=== PATIENT | male | born 1965 | race Caucasian/White ===

== ENCOUNTER 2016-06-19 11:18 | Emergency (ER) | payer OTHER ==
[2016-06-19 11:22] VITALS: BMI 28.4
[2016-06-19] MEDS ORDERED: Sodium Chloride 0.9% 1,000 ML IV ONE (11:52)
[2016-06-19] MEDS ORDERED: Piperacillin/Tazobact 3.375 gm 100 ML IV STA (11:56)
[2016-06-19 12:23] LABS: BASO # 0.1 K/uL (0.0-0.2); BASO % 0.5 % (0.0-2.0); EOS # 0.3 K/uL (0.0-0.7); EOS % 2.6 % (0.0-4.0); HEMATOCRIT 44.7 % (35.0-51.0); LYMPH # 1.8 K/uL (1.0-4.3); LYMPH % 15.5 % (20.0-40.0); MEAN CELL VOLUME 89.1 fL (80.0-94.0); MEAN CORPUSCULAR HEMOGLOBIN 30.2 pg (27.0-31.0); MEAN CORPUSCULAR HGB CONC 33.9 g/dL (33.0-37.0); MEAN PLATELET VOLUME 8.7 fL (7.2-11.7); MONO # 1.1 K/uL (0.0-0.8); MONO % 9.6 % (0.0-10.0); RED CELL DISTRIBUTION WIDTH 13.4 % (11.5-14.5); WHITE BLOOD COUNT 11.7 K/uL (4.8-10.8)
[2016-06-19 12:30] LABS: CHLORIDE 103 mmol/L (98-107)
[2016-06-19 12:31] LABS: POTASSIUM 4.3 mmol/L (3.6-5.2); SODIUM 140 mmol/L (132-148)
[2016-06-19 12:33] LABS: ALB/GLOB RATIO 1.1 (1.0-2.1); ALKALINE PHOSPHATASE 62 U/L (38-126); ALT/SGPT 45 U/L (21-72); AST/SGOT 22 U/L (17-59); BILIRUBIN,TOTAL 0.5 mg/dL (0.2-1.3); BLOOD UREA NITROGEN 12 mg/dL (9-20); CARBON DIOXIDE 26 mmol/L (22-30); GFR AFRICAN-AMERICAN > 60; GLUCOSE,RANDOM 101 mg/dL (75-110)
[2016-06-19 12:34] LABS: CALCIUM 8.8 mg/dl (8.6-10.4)
[2016-06-19] MEDS ORDERED: Piperacillin/Tazobact 3.375 gm 100 ML IVPB ONE (12:46)
[2016-06-19] MEDS ORDERED: Iohexol 300 100 ML IJ ONE (13:23)
--- NOTE | 2016-06-19 16:17 | C.PDOC ---
History Of Present Illness 51 year old patient presents to the emergency department complaining of perirectal pain for the past week. Patient states there is increased swelling. Patient has a history of perirectal abscess with draining. Patient notes he had a fever yesterday, but not today. No pain medications were taken. Patient denies abdominal pain, nausea, vomiting, blood in stool, back pain, or urinary symptoms. Time Seen by Provider: 06/19/16 11:41 Chief Complaint (Nursing): Back Pain History Per: Patient History/Exam Limitations: no limitations Onset/Duration Of Symptoms: Other (1 week) Current Symptoms Are (Timing): Still Present Quality Of Discomfort: "Pain" Severity: Moderate Pain Scale Rating Of: 4 Associated Symptoms: None Exacerbating Factor(s): Nothing Recent travel outside of the [place]: No Past Medical History Reviewed: Historical Data, Nursing Documentation, Vital Signs Vital Signs: Last Vital Signs Temp 98.2 F 06/19/16 19:05 Pulse 72 06/19/16 19:05 Resp 18 06/19/16 19:05 BP 132/72 06/19/16 19:05 Pulse Ox 100 06/19/16 21:11 Family History: States: Unknown Family Hx - Social History Hx Tobacco Use: No Hx Alcohol Use: No Hx Substance Use: No - Immunization History Hx Tetanus Toxoid Vaccination: No Hx Influenza Vaccination: Yes Hx Pneumococcal Vaccination: No Review Of Systems Except As Marked, All Systems Reviewed And Found Negative. Constitutional: Negative for: Fever Gastrointestinal: Positive for: Rectal Pain. Negative for: Nausea, Vomiting, Abdominal Pain Genitourinary: Negative for: Dysuria, Frequency, Incontinence, Hematuria Musculoskeletal: Negative for: Back Pain Physical Exam - Physical Exam Appears: Non-toxic, No Acute Distress Skin: Warm, Dry Head: Atraumatic, Normacephalic Eye(s): bilateral: Normal Inspection, EOMI Nose: Normal Oral Mucosa: Moist Neck: Normal ROM, Supple Chest: Symmetrical Cardiovascular: Rhythm Regular Respiratory: Normal Breath Sounds, No Accessory Muscle Use Gastrointestinal/Abdominal: Soft, No Tenderness Rectal: No Blood Streaked Stool, No Mass, Other (right perirectal area: tenderness, swelling and erythema) Back: Normal Inspection, No CVA Tenderness Extremity: Normal ROM Neurological/Psych: Oriented x3, Normal Speech, Normal Cognition Gait: Steady ED Course And Treatment - Laboratory Results Result Diagrams: 06/19/16 12:19 06/19/16 12:19 O2 Sat by Pulse Oximetry: 100 (RA) Pulse Ox Interpretation: Normal - CT Scan/US CT - Abd & Pelvis Other Rad Studies (CT/US): Read By Radiologist, Radiology Report Reviewed CT/US Interpretation: PROCEDURE: CT Abdomen and Pelvis dated 06/19/2016. . HISTORY: perirectal pain, r/o abscess. COMPARISON: None. TECHNIQUE: Contiguous axial images of the abdomen and pelvis performed in standard fashion following intravenous injection of approximately 100 cc of Omnipaque 300 contrast material. Coronal and Sagittal reformats generated. Radiation dose: Total exam DLP = 409.61 mGy-cm. FINDINGS: LOWER THORAX: Mild passive atelectasis both posterior lower lung marie. No effusion or basilar pneumothorax. Heart size is upper limits of normal/borderline enlarged. No pericardial effusion. Tiny hiatal hernia. LIVER: The liver is enlarged measuring approximately 21.5 cm in CC dimension. Mild diffuse fatty hepatic infiltration. No obvious hepatic mass collection or calcification. Portal and splenic veins are opacified. GALLBLADDER AND BILE DUCTS: Gallbladder is appears incompletely distended which may account for slightly prominent gallbladder wall. . No evidence of intraluminal gallbladder calculi. PANCREAS : Visualized portions of the pancreas unremarkable without mass, collection or calcification. No significant pancreatic ductal dilatation. SPLEEN: Spleen exhibits normal size and attenuation pattern without mass collection or calcification. ADRENALS: There are no adrenal lesions. KIDNEYS AND URETERS: Kidneys exhibit symmetric nephrograms. No evidence of nephrolithiasis or hydronephrosis. BLADDER: Urinary bladder is physiologically distended. No evidence of intraluminal urinary bladder calculi. REPRODUCTIVE: Prostate gland measures approximately 4.5 cm in transverse dimension. Prostatic calcifications are present. APPENDIX: Appendix is normal mild fatty hepatic. BOWEL: Evaluation of the bowel slightly limited due to incomplete opacification. . The stomach contains food debris liquid and air. Visualized loops of small bowel exhibit normal contour and caliber. No evidence of acute mechanical small bowel obstruction. Stool and air seen throughout the colon. There is a small approximately 2.9cm ap x 1.5cm t x 2.8cm cc elliptical shaped low-attenuation focus in the right parasagittal perianal region that is most consistent with a small perianal abscess. PERITONEUM: Unremarkable. No fluid collection. No free air. LYMPH NODES: Unremarkable. No enlarged lymph nodes. VASCULATURE: Unremarkable. No aortic aneurysm. BONES: No fracture or destructive lesion. OTHER FINDINGS: None. IMPRESSION: Impression: There is a small perianal abscess as above. Hepatomegaly. Mild fatty hepatic infiltration. Progress Note: Plan: -Abdomen/Pelvis CT. -Labs. -IV fluids, Toradol, Zosyn. -Labs. Case discussed with Carlos Carter who saw the patient and evaluated at bedside. Dr Velez discsused case with Dr. Cornejo, agreed upon plan and discharge. I & D performed in the emergency department by Dr Velez. Patient was instructed to do a wound check and change packing in 2 days. Disposition - Disposition Referrals: Kentrell Cornejo MD [Staff Provider] - Disposition: HOME/ ROUTINE Disposition Time: 16:54 Condition: STABLE Additional Instructions: Wound check in [address] Cornejo or ER. Return to ER if symptoms persist or worsen. Prescriptions: Ciprofloxacin HCl [Cipro] 500 mg PO BID #14 tab Metronidazole [Flagyl] 500 mg PO BID #14 tab Naproxen [Naprosyn] 1 tab PO BID PRN #20 tab PRN Reason: Pain Instructions: Rectal Abscess (ED) - Clinical Impression Clinical Impression: Perirectal abscess - PA / SALES VENDOR / Resident Statement MD/DO has reviewed & agrees with the documentation as recorded. - Scribe Statement The provider has reviewed the documentation as recorded by the Scribe Liz Pratt All medical record entries made by the Scribe were at my direction and personally dictated by me. I have reviewed the chart and agree that the record accurately reflects my personal performance of the history, physical exam, medical decision making, and the department course for this patient. I have also personally directed, reviewed, and agree with the discharge instructions and disposition.
[2016-06-19] MEDS ORDERED: Lidocaine 2% w Epi 1:100,000 Inj IJ ONE (16:53)
--- NOTE | 2016-06-19 16:58 | CP.PCM.CON ---
<Robin Velez - Last Filed: 06/19/16 18:00> History of Present Illness - History of Present Illness History of Present Illness: General Surgery Consult Re: perirectal abscess HPI: 51M presented with 1 week of increasing perirectal pain. Ibuprofen did not help pain anymore so he came to ED. He had this before 7 years ago and had it drained. No F/C, N/V/D, dysuria, discharge, tenesmus, abdominal pain, SOB, chest pain or dizziness. PMH: Denies PSH: L knee replacement SH: Quit smoking 3 years ago, no EtOH, no drug use. All: NKDA Meds: Denies Review of Systems - Review of Systems All systems: reviewed and no additional remarkable complaints except (as per hpi ) Past Patient History - Past Social History Smoking Status: Former Smoker - CARDIAC Hx Cardiac Disorders: No - PULMONARY Hx Respiratory Disorders: No - NEUROLOGICAL Hx Neurological Disorder: No - HEENT Hx HEENT Problems: No - RENAL Hx Chronic Kidney Disease: No - ENDOCRINE/METABOLIC Hx Endocrine Disorders: No - HEMATOLOGICAL/ONCOLOGICAL Hx Blood Disorders: No - INTEGUMENTARY Hx Dermatological Problems: No - MUSCULOSKELETAL/RHEUMATOLOGICAL Hx Musculoskeletal Disorders: No - GASTROINTESTINAL Hx Gastrointestinal Disorders: No - GENITOURINARY/GYNECOLOGICAL Hx Genitourinary Disorders: No - PSYCHIATRIC Hx Substance Use: No - SURGICAL HISTORY Hx Surgeries: Yes Other/Comment: L knee replacement - ANESTHESIA Hx Anesthesia: Yes Hx Anesthesia Reactions: No Meds Home Medications: Home Medication List Medication Instructions Recorded Confirmed Type Ciprofloxacin HCl [Cipro] 500 mg PO BID #14 tab 06/19/16 Rx Metronidazole [Flagyl] 500 mg PO BID #14 tab 06/19/16 Rx Naproxen [Naprosyn] 1 tab PO BID PRN #20 tab 06/19/16 Rx Allergies/Adverse Reactions: Allergies Allergy/AdvReac Type Severity Reaction Status Date / Time No Known Allergies Allergy Verified 06/19/16 11:21 Physical Exam - Constitutional Appears: Non-toxic, No Acute Distress - Head Exam Head Exam: ATRAUMATIC, NORMOCEPHALIC - Eye Exam Eye Exam: EOMI. absent: Scleral icterus - ENT Exam ENT Exam: Mucous Membranes Moist Additional comments: trachea midline - Respiratory Exam Respiratory Exam: NORMAL BREATHING PATTERN. absent: Respiratory Distress - GI/Abdominal Exam GI & Abdominal Exam: Soft. absent: Distended, Tenderness - Rectal Exam Rectal Exam: absent: Black Stool, Bloody Stool, Fecal Impaction Additional comments: TTP on R side with swelling and erythema over R perineal area and TTP of R side of rectum - Extremities Exam Extremities exam: Positive for: normal capillary refill. Negative for: pedal edema - Back Exam Back exam: absent: CVA tenderness (L), CVA tenderness (R) - Neurological Exam Neurological exam: Alert, Oriented x3 - Psychiatric Exam Psychiatric exam: Normal Affect, Normal Mood - Skin Skin Exam: Dry, Warm Results - Vital Signs Recent Vital Signs: Last Vital Signs Temp 97.1 F L 06/19/16 15:00 Pulse 56 L 06/19/16 15:00 Resp 20 06/19/16 15:00 BP 100/63 06/19/16 15:00 Pulse Ox 100 06/19/16 16:17 - Labs Result Diagrams: 06/19/16 12:19 06/19/16 12:19 Labs: Laboratory Results - last 24 hr 06/19/16 12:19 WBC 11.7 H RBC 5.02 Hgb 15.1 Hct 44.7 MCV 89.1 MCH 30.2 MCHC 33.9 RDW 13.4 Plt Count 222 MPV 8.7 Neut % (Auto) 71.8 Lymph % (Auto) 15.5 L [place] % (Auto) 9.6 Eos % (Auto) 2.6 Baso % (Auto) 0.5 Neut # 8.4 H Lymph # 1.8 [place] # 1.1 H Eos # 0.3 Baso # 0.1 Sodium 140 Potassium 4.3 Chloride 103 Carbon Dioxide 26 Anion Gap 15 BUN 12 Creatinine 0.8 Est GFR ( Amer) > 60 Est GFR (Non-Af Amer) > 60 Random Glucose 101 Calcium 8.8 Total Bilirubin 0.5 AST 22 ALT 45 Alkaline Phosphatase 62 Total Protein 7.0 Albumin 3.7 Globulin 3.3 Albumin/Globulin Ratio 1.1 - Imaging and Cardiology CT scan - pelvis Status: Image reviewed by me, Report reviewed by me Assessment & Plan - Assessment and Plan (Free Text) Assessment: 51M with perirectal abscess Plan: Bedside I&D, written consent obtained. Packing change in 2 days Follow up in Dr. Sweeney office. Call for Fever more than 101 and increasing pain despite medications. Cipro and flagyl for 7 days D/W Dr. Clemente Velez PGY3 - Incision & Drainage Of Abscess Anesthesia: Lidocaine 2%, With Epi Prep Used: Betadine Procedure: Incised W/Scalpel Blade#: (11), Drained Pus (5.5cc via syringe), Irrigated Cavity W/Saline (50cc), Probed To Break Up Loculations, Packed W/ Gauze (and dressing placed), Cultures Obtained And Sent To Lab <Kentrell Cornejo - Last Filed: 06/22/16 18:16> Results - Vital Signs Recent Vital Signs: Last Vital Signs Temp 98.2 F 06/19/16 19:05 Pulse 72 06/19/16 19:05 Resp 18 06/19/16 19:05 BP 132/72 06/19/16 19:05 Pulse Ox 100 06/19/16 22:25 - Labs Result Diagrams: 06/19/16 12:19 06/19/16 12:19 Attending/Attestation - Attestation I have fully participated in the care of the patient.: Yes I have reviewed all pertinent clinical information: Yes Notes (Text): 06/22/16 18:15 Pt was seen and examined at bedside on 06/19/16 Agree with above note and assessment. Pt would need I & D at bedside Consent Plan d.w pt in detail Risk and benefit explained in detail.
[2016-06-19 18:00] VITALS: RESP 18
[2016-06-19 19:05] VITALS: BP 132/72; PULSE 72; TEMP 98.2
[2016-06-19 21:04] VITALS: O2SAT 100
--- NOTE | 2016-06-23 04:26 | OP ---
PROCEDURE DATE: 06/19/2016 PREOPERATIVE DIAGNOSIS: Perirectal abscess. POSTOPERATIVE DIAGNOSIS: Perirectal abscess. PROCEDURE DONE: 1. Incision and drainage of perirectal abscess on the right side. 2. Debridement of the wound. SURGEON: Kentrell Cornejo MD ONCOLOGY NURSE: Robin Velez, PGY3 resident. ANESTHESIA: Local anesthesia. ESTIMATED BLOOD LOSS: Around 10 mL. DRAINS: None. PATHOLOGY: Pus was sent for culture and sensitivity. COMPLICATIONS: None. INTRAOPERATIVE FINDINGS: The patient had right-sided perirectal abscess with cellulitis. INTRAOPERATIVE STEPS: This 51-year-old male who was diagnosed with right-sided perirectal abscess an d the patient was consented for the procedure. Placed in the left lateral position and the perineal area was prepped and draped and local anesthesia was injected and perirectal abscess was identified a nd incision was made. Abscess was drained and wound was debrided and the wound was packed with iodof orm packing and dry sterile dressing was applied. The patient tolerated the procedure well. Count o f instruments and gauze was correct. There was no apparent complication. Kentrell Cornejo MD cc: [id number] TT: 06/23/2016 04:26:26 kn
== END 2016-06-19 19:05 | disposition home or self-care (01) ==
LOC: C.ER 11:18 → SUPCPDRO 11:18 → C.ER 19:05
DX: K61.1 Rectal abscess (principal); B96.20 Unspecified Escherichia coli [E. coli] as the cause of diseases classified elsewhere; B95.7 Other staphylococcus as the cause of diseases classified elsewhere
CPT/HCPCS: 10060; 74177; 80053; 85025; 87040; 87070; 87181; 87206; 96361; 96365; 96375; 99285; J1885; J2543; J7040; Q9967

== ENCOUNTER 2016-06-21 08:06 | Emergency (ER) | payer OTHER ==
[2016-06-21 08:06] VITALS: BMI 28.4
[2016-06-21 08:17] VITALS: BP 117/72; PULSE 92; RESP 18; TEMP 97.9; O2SAT 97
--- NOTE | 2016-06-21 09:15 | C.PDOC ---
History Of Present Illness 51 y/o male presents to the ED for wound check. He reports that he was evaluated in the ED 2 days prior for perirectal abscess. At that time the patient was evaluated by Dr. Velez who performed I&D in the emergency department. Patient was referred to Dr. Cornejo for follow up and states he has an appointment scheduled next week. Patient denies fevers or any complaints at this time. States he was advised to return to the ED for wound check and repacking today. Chief Complaint (Nursing): Abnormal Skin Integrity History Per: Patient History/Exam Limitations: no limitations Onset/Duration Of Symptoms: Days, Gradual, Persistent Current Symptoms Are (Timing): Still Present Pain Scale Rating Of: 0 Recent travel outside of the [place]: No Past Medical History Reviewed: Historical Data, Nursing Documentation, Vital Signs Vital Signs: Last Vital Signs Temp 97.9 F 06/21/16 08:17 Pulse 92 H 06/21/16 08:17 Resp 18 06/21/16 08:17 BP 117/72 06/21/16 08:17 Pulse Ox 97 06/21/16 11:14 - Medical History PMH: No Chronic Diseases Surgical History: No Surg Hx Family History: States: Unknown Family Hx - Social History Hx Tobacco Use: No Hx Alcohol Use: No Hx Substance Use: No - Immunization History Hx Tetanus Toxoid Vaccination: No Hx Influenza Vaccination: Yes Hx Pneumococcal Vaccination: No Review Of Systems Except As Marked, All Systems Reviewed And Found Negative. Constitutional: Negative for: Fever Musculoskeletal: Negative for: Other (pain) Skin: Positive for: Other (wound check) Physical Exam - Physical Exam Appears: Non-toxic, No Acute Distress Skin: Normal Color, Warm, Dry Head: Atraumatic, Normacephalic Chest: Symmetrical Cardiovascular: Rhythm Regular Respiratory: Normal Breath Sounds, No Rales, No Rhonchi, No Wheezing Rectal: Other (gauze packing and dressing intact) Extremity: Normal ROM Neurological/Psych: Oriented x3, Normal Speech, Normal Cognition ED Course And Treatment O2 Sat by Pulse Oximetry: 97 (ra) Pulse Ox Interpretation: Normal Progress Note: Wound examined by a rn surgical pcu, repacked with gauze and clean dressing applied. Patient on Cipro and Flagyl s/p I&D of perirectal abscess. Wound culture checked - sensitive to patient's prescribed medication. Patient continues to deny any pain or other complaints. Advised to continue medications and follow up with Dr. Cornejo as previously instructed. Disposition - Disposition Referrals: Kentrell Cornejo MD [Staff Provider] - Disposition: HOME/ ROUTINE Disposition Time: 09:12 Condition: STABLE Additional Instructions: Follow up with Surgeon as previously instructed. Return to ED if feel worse. Continue medications as instructed. Instructions: Rectal Abscess (ED) - Clinical Impression Clinical Impression: S/P enrico-rectal abscess repair, follow-up exam - PA / PRINCIPLE INDUSTRIAL HYGIENIST / Resident Statement MD/DO has reviewed & agrees with the documentation as recorded. - Scribe Statement The provider has reviewed the documentation as recorded by the Scribe (Diana Oakes) All medical record entries made by the Scribe were at my direction and personally dictated by me. I have reviewed the chart and agree that the record accurately reflects my personal performance of the history, physical exam, medical decision making, and the department course for this patient. I have also personally directed, reviewed, and agree with the discharge instructions and disposition.
== END 2016-06-21 09:20 | disposition home or self-care (01) ==
LOC: C.ER 08:06
DX: Z48.00 Encounter for change or removal of nonsurgical wound dressing (principal)

== ENCOUNTER 2016-06-29 08:13 | Emergency (ER) | payer OTHER ==
[2016-06-29 08:17] VITALS: BMI 27.4
[2016-06-29] MEDS ORDERED: Sodium Chloride 0.9% 1,000 ML IV ONE (08:39)
--- NOTE | 2016-06-29 08:41 | C.PDOC ---
Time Seen by Provider: 06/29/16 08:14 Chief Complaint (Nursing): Abdominal Pain Past Medical History Vital Signs: Last Vital Signs Temp 98.7 F 06/29/16 08:17 Pulse 95 H 06/29/16 08:17 Resp 16 06/29/16 08:17 BP 114/82 06/29/16 08:17 Pulse Ox 100 06/29/16 08:17 - Medical History PMH: Denies: Chronic Kidney Disease Family History: States: Unknown Family Hx - Social History Hx Tobacco Use: No Hx Alcohol Use: No Hx Substance Use: No - Immunization History Hx Tetanus Toxoid Vaccination: No Hx Influenza Vaccination: Yes Hx Pneumococcal Vaccination: No ED Course And Treatment O2 Sat by Pulse Oximetry: 100
--- NOTE | 2016-06-29 08:42 | C.PDOC ---
History Of Present Illness 51 y/o male presents to the ED complaining of epigastric and LUQ abdominal pain x 9 days. Patient admits to nausea and vomiting but denies any diarrhea, fever, or other complaints. Time Seen by Provider: 06/29/16 08:14 Chief Complaint (Nursing): Abdominal Pain History Per: Patient History/Exam Limitations: no limitations Onset/Duration Of Symptoms: Days (9), Gradual, Persistent Current Symptoms Are (Timing): Still Present Location Of Pain/Discomfort: Epigastric, LUQ Radiation Of Pain To:: None Associated Symptoms: Nausea, Vomiting Recent travel outside of the [place]: No Past Medical History Reviewed: Historical Data, Nursing Documentation, Vital Signs Vital Signs: Last Vital Signs Temp 98.1 F 06/29/16 11:29 Pulse 57 L 06/29/16 11:29 Resp 20 06/29/16 11:29 BP 124/77 06/29/16 11:29 Pulse Ox 100 06/29/16 12:37 - Medical History PMH: No Chronic Diseases Surgical History: No Surg Hx Family History: States: No Known Family Hx - Social History Hx Tobacco Use: No Hx Alcohol Use: No Hx Substance Use: No - Immunization History Hx Tetanus Toxoid Vaccination: No Hx Influenza Vaccination: Yes Hx Pneumococcal Vaccination: No Review Of Systems Except As Marked, All Systems Reviewed And Found Negative. Constitutional: Negative for: Fever Gastrointestinal: Positive for: Nausea, Vomiting, Abdominal Pain. Negative for : Diarrhea Physical Exam - Physical Exam Appears: Non-toxic, No Acute Distress Skin: Normal Color, Warm, Dry Head: Atraumatic, Normacephalic Eye(s): bilateral: Normal Inspection, PERRL Oral Mucosa: Moist Neck: Normal ROM, Supple Chest: Symmetrical, No Tenderness Cardiovascular: Rhythm Regular Respiratory: Normal Breath Sounds, No Rales, No Rhonchi, No Wheezing Gastrointestinal/Abdominal: Soft, Tenderness (epigastric and LUQ), No Guarding, No Rebound Back: Normal Inspection, No CVA Tenderness Extremity: Normal ROM, No Swelling Neurological/Psych: Oriented x3, Normal Speech, Normal Cognition ED Course And Treatment - Laboratory Results Result Diagrams: 06/29/16 08:44 06/29/16 08:44 Lab Interpretation: Normal ECG: Interpreted By Pr ECG Rhythm: Sinus Bradycardia ECG Interpretation: No Acute Changes Rate From EC (bpm) O2 Sat by Pulse Oximetry: 100 (ra) Pulse Ox Interpretation: Normal - CT Scan/US Ultrasound Other Rad Studies (CT/US): Read By Radiologist, Radiology Report Reviewed CT/US Interpretation: Accession No. : [id number]. Patient Name / ID : CARLOS Odonnell / [id number]. Exam Date : 06/29/2016 09:09:09 ( Approved ). Study Comment : Sex / Age : M / 51Y. Creator : Tito Caceres MD. Dictator : Tito Caceres MD. Slasher Hand : Aperture Mask Etcher : Tito Caceres MD. Approver2 : Report Date : 06/29/2016 11:08:13. My Comment : . Abdominal ultrasound dated 06/29/2016. History: Pain. Sonographic evaluation of the abdomen performed. Findings: The liver is borderline/mildly enlarged measuring just over 18 cm in CC dimension. Liver the demonstrates smooth contour however increased echotexture suggesting fatty infiltration. Other infiltrative hepatocellular disease process not excluded. The gallbladder is physiologically distended. No evidence true luminal gallbladder calculi. No evidence of pericholecystic fluid collections, wall edema or sonographic Murry sign. . Common bile duct measures approximately 3.2 mm. The visualized portions of the pancreas unremarkable. Note that the distal pancreatic tail is poorly visualized. . The right kidney measures approximately 11.9 x 5.4 x 5.5 cm. No evidence of shadowing calculi or hydronephrosis. . There appears to be a small cyst mid to lower pole right kidney measuring 1.3 x 1.0 x 1.3 cm. . Impression: Borderline/mild hepatomegaly with increased hepatic echotexture suggesting fatty infiltration however other infiltrative hepatocellular disease process not excluded. Progress Note: Treated with IVF NSS, zofran and toradol. On re-evaluation abdomen soft, feeling better Reassessment Condition: Improved Medical Decision Making Medical Decision Making: Plan: * Ultrasound * Blood Work * Urinalysis * Zofran IVP, Toradol IVP, Maalox IVP, IV Fluids Disposition Counseled Patient/Family Regarding: Studies Performed, Diagnosis, Need For Followup, Rx Given - Disposition Referrals: Judson Juárez MD [Staff Provider] - Disposition: HOME/ ROUTINE Disposition Time: 20:00 Condition: GOOD Additional Instructions: Follow up with PMD for further evaluation Return to ED if any increase symptoms Prescriptions: Ondansetron ODT [Zofran ODT] 1 odt PO BID PRN #6 odt PRN Reason: Nausea/Vomiting Instructions: Abdominal Pain (ED), Acute Nausea and Vomiting (ED) - POA Present On Arrival: None - Clinical Impression Clinical Impression: Abdominal pain, Vomiting, Nausea - PA / VIDEO SURVEILLANCE TECHNICIAN / Resident Statement MD/DO has reviewed & agrees with the documentation as recorded. - Scribe Statement The provider has reviewed the documentation as recorded by the Scribe (Diana Oakes) All medical record entries made by the Scribe were at my direction and personally dictated by me. I have reviewed the chart and agree that the record accurately reflects my personal performance of the history, physical exam, medical decision making, and the department course for this patient. I have also personally directed, reviewed, and agree with the discharge instructions and disposition.
[2016-06-29] MEDS ORDERED: Sodium Chloride 0.9% 1,000 ML ONE (08:46)
[2016-06-29 08:47] LABS: BASO # 0.1 K/uL (0.0-0.2); BASO % 0.7 % (0.0-2.0); EOS # 0.2 K/uL (0.0-0.7); EOS % 2.2 % (0.0-4.0); HEMATOCRIT 46.6 % (35.0-51.0); LYMPH # 2.6 K/uL (1.0-4.3); LYMPH % 24.3 % (20.0-40.0); MEAN CELL VOLUME 89.3 fL (80.0-94.0); MEAN CORPUSCULAR HGB CONC 33.6 g/dL (33.0-37.0); MEAN PLATELET VOLUME 8.3 fL (7.2-11.7); MONO # 0.8 K/uL (0.0-0.8); MONO % 6.9 % (0.0-10.0); RED CELL DISTRIBUTION WIDTH 13.3 % (11.5-14.5); WHITE BLOOD COUNT 10.8 K/uL (4.8-10.8)
[2016-06-29 08:55] LABS: CHLORIDE 103 mmol/L (98-107); POTASSIUM 3.8 mmol/L (3.6-5.2); SODIUM 142 mmol/L (132-148)
[2016-06-29 08:57] LABS: BILIRUBIN,TOTAL 0.7 mg/dL (0.2-1.3); CARBON DIOXIDE 28 mmol/L (22-30); GFR AFRICAN-AMERICAN > 60
[2016-06-29 08:58] LABS: ALB/GLOB RATIO 1.2 (1.0-2.1); ALKALINE PHOSPHATASE 61 U/L (38-126); ALT/SGPT 53 U/L (21-72); AST/SGOT 33 U/L (17-59); BLOOD UREA NITROGEN 12 mg/dL (9-20); CALCIUM 8.8 mg/dl (8.6-10.4); GLUCOSE,RANDOM 94 mg/dL (75-110); TOTAL PROTEIN 7.4 g/dL (6.3-8.3)
[2016-06-29 09:08] LABS: RBC URINE 1 /hpf (0-3); URINE BILIRUBIN NEGATIVE (NEGATIVE); URINE BLOOD NEGATIVE (NEGATIVE); URINE COLOR Yellow (YELLOW); URINE GLUCOSE (UA) NORMAL (Normal); URINE KETONE NEGATIVE (NEGATIVE); URINE LEUKOCYTE ESTERASE NEG Leu/uL (Negative); URINE PROTEIN NEGATIVE (NEGATIVE); URINE UROBILINOGEN NORMAL mg/dL (0.2-1.0); WBC URINE 1 /hpf (0-5)
--- NOTE | 2016-06-29 11:09 | US ---
Abdominal ultrasound dated 06/29/2016. History: Pain. Sonographic evaluation of the abdomen performed. Findings: The liver is borderline/mildly enlarged measuring just over 18 cm in CC dimension. Liver the demonstrates smooth contour however increased echotexture suggesting fatty infiltration. Other infiltrative hepatocellular disease process not excluded. The gallbladder is physiologically distended. No evidence true luminal gallbladder calculi. No evidence of pericholecystic fluid collections, wall edema or sonographic Murry sign. . Common bile duct measures approximately 3.2 mm. The visualized portions of the pancreas unremarkable. Note that the distal pancreatic tail is poorly visualized. . The right kidney measures approximately 11.9 x 5.4 x 5.5 cm. No evidence of shadowing calculi or hydronephrosis. . There appears to be a small cyst mid to lower pole right kidney measuring 1.3 x 1.0 x 1.3 cm. . Impression: Borderline/mild hepatomegaly with increased hepatic echotexture suggesting fatty infiltration however other infiltrative hepatocellular disease process not excluded.
[2016-06-29 11:30] VITALS: BP 124/77; PULSE 57; RESP 20; TEMP 98.1
[2016-06-29] MEDS ORDERED: Alum-Mag Hydrox-Simethicone Susp (30 mL) PO STA (11:33)
[2016-06-29] MEDS ORDERED: Alum-Mag Hydrox-Simethicone Susp (30 mL) ONE (11:39)
[2016-06-29 11:47] VITALS: O2SAT 100
--- NOTE | 2016-06-30 21:33 | CARD ---
APPROVED REPORT EKG Measurement Heart [id number] <Conclusion> Sinus bradycardia Right bundle branch block Abnormal ECG
== END 2016-06-29 12:13 | disposition home or self-care (01) ==
LOC: C.ER 08:13
DX: R10.12 Left upper quadrant pain (principal); R11.2 Nausea with vomiting, unspecified
CPT/HCPCS: 76705; 80053; 81001; 83690; 85025; 93005; 96361; 96374; 96375; 99285; J1885; J2405; J7040

== ENCOUNTER 2016-08-18 18:09 | Emergency (ER) | payer OTHER ==
[2016-08-18 18:09] VITALS: BMI 27.4
--- NOTE | 2016-08-18 21:44 | C.PDOC ---
History Of Present Illness 51 year old male presents to the ER with complaints of right eye redness for 2 days. Patient notes got into an argument and had stress at work two days ago and believes it may have affected his eye. Patient denies any trauma, visual changes, discharge, itching, pain, or any other complaints. Time Seen by Provider: 08/18/16 21:41 History Per: Patient History/Exam Limitations: no limitations Onset/Duration Of Symptoms: Days (2) Current Symptoms Are (Timing): Still Present Injury To Eye?: No Severity: Mild Associated Symptoms: Other (Redness). denies: Pain, Decreased Vision, Swelling , FB Sensation, Itching, Discharge From Eye Recent travel outside of the [place]: No Past Medical History Reviewed: Historical Data, Nursing Documentation, Vital Signs - Medical History PMH: Denies: Chronic Kidney Disease Family History: States: Unknown Family Hx - Social History Hx Tobacco Use: No Hx Alcohol Use: No Hx Substance Use: No - Immunization History Hx Tetanus Toxoid Vaccination: No Hx Influenza Vaccination: Yes Hx Pneumococcal Vaccination: No Review Of Systems Except As Marked, All Systems Reviewed And Found Negative. Constitutional: Negative for: Fever, Chills Eyes: Positive for: Redness (Right eye). Negative for: Pain, Vision Change Gastrointestinal: Negative for: Nausea, Vomiting, Diarrhea Physical Exam - Physical Exam Appears: Well, Non-toxic Skin: Normal Color, Warm, No Rash Head: Atraumatic, Normacephalic Eye(s): bilateral: PERRL, EOMI, Other (Subjunctival hemorrhage that does not cross the limbus.), left: Normal Inspection Nose: Normal Oral Mucosa: Moist Neck: Normal, Normal ROM, Supple Chest: Symmetrical Cardiovascular: Rhythm Regular Respiratory: Normal Breath Sounds Extremity: Normal ROM, No Tenderness Neurological/Psych: Oriented x3, Normal Speech, Normal Cognition, Normal Cranial Nerves Gait: Steady ED Course And Treatment Progress Note: Ht = 5'6. Wt = 155 lbs. Pulse = 83. Resp = 18. BP = 104/71. Temp = 98. Patient is afebrile. Patient denies any eye itching, discharge, swelling , or pain. Patient feels comfortable going home. Patient instructed to follow up with eye doctor within 1-2 days. Disposition - Disposition Disposition: HOME/ ROUTINE Disposition Time: 22:00 Condition: STABLE - Clinical Impression Clinical Impression: Subconjunctival hemorrhage - Scribe Statement The provider has reviewed the documentation as recorded by the Mahendraibfede Alcazar
== END 2016-08-18 21:00 | disposition home or self-care (01) ==
LOC: C.ER 18:09
DX: H11.31 Conjunctival hemorrhage, right eye (principal)